=== PATIENT | male | born 1955 | race Caucasian/White ===

== ENCOUNTER 2025-02-03 13:17 | Emergency (ER) | payer BC ==
[~2025-02-03] VITALS: Ht 188 cm; Wt 93.5 kg
[2025-02-03] MEDS ORDERED: TADA2.5T20 PO (13:31)
[2025-02-03] MEDS ORDERED: FINA5TAB2 PO (13:31)
[2025-02-03] MEDS ORDERED: TAMS-18 PO (13:42)
[2025-02-03] MEDS: ASPIRIN 81 MG CHEWABLE TABLET PO ONE (14:05)
[2025-02-03] MEDS ORDERED: NITROGLYCERIN 0.4 MG SUBL TABLET As Ordered ONE (14:20)
[2025-02-03 14:21] LABS: BASO # 0.1 10^3/uL (0.0-0.2); BASO % 0.4 % (0.0-1.0); EOS # 0.2 10^3/uL (0.0-0.5); EOS % 1.4 % (0.0-3.0); LYMPH # 2.0 10^3/uL (1.5-5.0); LYMPH % 18.0 % (24.0-44.0); MONO # 0.9 10^3/uL (0.0-0.8); MONO % 8.4 % (2.0-8.0); NEUTROPHILS # 8.0 10^3/uL (1.5-8.5); NEUTROPHILS % 71.6 % (36.0-66.0); PLATELET COUNT, AUTOMATED 231 10^3/uL (150-450)
[2025-02-03] MEDS: NITROGLYCERIN 0.4 MG SUBL TABLET SL PRN (14:27)
[2025-02-03 14:34] LABS: INR 0.94
[2025-02-03 14:40] VITALS: BP 128/63
[2025-02-03 14:46] LABS: ALT/SGPT 16.0 U/L (7.0-40); AST/SGOT 20.0 U/L (<34); CALCIUM LEVEL 8.9 MG/DL (8.3-10.6); CARBON DIOXIDE LEVEL 29.0 MMOL/L (20-31); CHLORIDE LEVEL 101.0 MMOL/L (98-107); CK-MB VALUE MASS 1.2 NG/ML (<3.6); CPK CREATINE PHOSPHOKINASE 82.0 U/L (46-171); CREATININE FOR GFR 0.96 MG/DL (0.70-1.30); GLOMERULAR FILTRATION RATE 85.0 (>42); MB/CK RELATIVE INDEX 1.46 (< OR =4); POTASSIUM SERUM 4.1 MMOL/L (3.5-5.1); SODIUM LEVEL 141.0 MMOL/L (136-145)
[2025-02-03 14:48] LABS: FREE T4 1.39 NG/DL (0.89-1.76)
[2025-02-03] MEDS ORDERED: ISOVUE-370 76% 100 ML VIAL As Ordered ONE (15:03)
[2025-02-03 15:23] LABS: CK-MB VALUE MASS 1.2 NG/ML (<3.6)
[2025-02-03 15:27] LABS: CPK CREATINE PHOSPHOKINASE 79.0 U/L (46-171); MB/CK RELATIVE INDEX 1.51 (< OR =4)
[2025-02-03] MEDS ORDERED: HOME MED LIST COMPLETE! XX SCH (15:45)
[2025-02-03] MEDS: MAALOX 30 ML SUSP *UDC PO ONE (15:47)
[2025-02-03] MEDS: SUCRALFATE SUSP 1GM/10ML UD PO ONE (15:47)
[2025-02-03] MEDS: LIDOCAINE VISCOUS 2% SOLN 15 ML UDC PO ONE (15:47)
[2025-02-03] MEDS: BENZONATATE 100 MG CAPSULE PO ONE (15:47)
[2025-02-03] MEDS ORDERED: CEFD300C PO (16:07)
[2025-02-03] MEDS ORDERED: PROT1TAB2 PO (16:07)
[2025-02-03] MEDS ORDERED: BENZ200C70 PO (16:07)
[2025-02-03] MEDS ORDERED: ZITHTAB PO (16:07)
[2025-02-03 16:15] VITALS: BP 135/84; TEMP 96.7; O2SAT 96
[2025-02-03] MEDS: AZITHROMYCIN 250 MG TABLET PO ONE (16:18)
[2025-02-03] MEDS: CEFDINIR 300 MG CAP PO ONE (16:18)
== END 2025-02-03 16:15 | disposition home or self-care (01) ==
LOC: M ED 13:17
DX: K21.9 Gastro-esophageal reflux disease without esophagitis (principal); J18.9 Pneumonia, unspecified organism; N40.0 Benign prostatic hyperplasia without lower urinary tract symptoms; Z87.81 Personal history of (healed) traumatic fracture
CPT/HCPCS: 71045; 71275; 74174; 80047; 80048; 80076; 82550; 82553; 83690; 84145; 84439; 84443; 84484; 85025; 85610; 85730; 87486; 87581; 87633; 87798; 93005; 93041; 94760; 99285; Q9967